=== PATIENT | male | born 1980 | race Caucasian/White ===

== ENCOUNTER 2019-12-08 01:28 | Emergency (ER) | payer MEDICAID ==
[~2019-12-08] VITALS: Ht 188 cm; Wt 100.0 kg
[2019-12-08 01:35] VITALS: BP 145/87
[2019-12-08] MEDS ORDERED: cephalexin 500mg capsule PO ONE (03:15)
[2019-12-08] MEDS ORDERED: LIDOcaine 40mg/ml topical solution MM ONE (03:15)
[2019-12-08] MEDS ORDERED: LIDOcaine 4% (40 mg/ml) topical solution 50ml MM ONE (03:20)
[2019-12-08] MEDS ORDERED: CEPH500C5 PO (04:45)
[2019-12-08] MEDS ORDERED: gentamicin 0.1% topical ointment 15gm TP SCH (04:50)
[2019-12-08] MEDS ORDERED: gentamicin 0.1% topical ointment 15gm TP ONE (04:50)
== END 2019-12-08 05:05 | disposition home or self-care (01) ==
LOC: ER 01:30
DX: L03.115 Cellulitis of right lower limb (principal); L97.518 Non-pressure chronic ulcer of other part of right foot with other specified severity; R23.4 Changes in skin texture; Z79.2 Long term (current) use of antibiotics
CPT/HCPCS: 97597; 99283; 99285